=== PATIENT | male | born 1955 | race Caucasian/White ===

== ENCOUNTER → 2016-08-28 | Outpatient (CLI) | payer OTHER ==
[~2016-08-28] MED LIST: ASPEC81 PO; ATOR-24 PO; CALCTAB76 PO; CLOP1TAB5 PO; LISI-729 PO; MULT-506 PO
[2016-08-28 09:46] LABS: ALT/SGPT 35 U/L (12-78); AST/SGOT 18 U/L (15-37); BLOOD UREA NITROGEN 10 mg/dl (7-18); BUN/CREATININE RATIO 10.6 (10-20); CALCIUM 8.8 mg/dl (8.5-10.1); CARBON DIOXIDE 29 mmol/L (21-32); CHLORIDE 107 mmol/L (98-107); CREATININE 0.92 mg/dl (0.60-1.40); GLUCOSE 98 mg/dl (70-99); POTASSIUM 4.2 mmol/L (3.5-5.1); SODIUM 143 mmol/L (136-145)
[2016-08-28 09:49] LABS: ALB/GLOB RATIO 1.1 (0.9-2); ALKALINE PHOSPHATASE 80 U/L (45-117); CHOLESTEROL 135 mg/dl (0-200); CHOLESTEROL/HDL RATIO 2.6; HDL CHOLESTEROL 52 mg/dl; LDL CHOLESTEROL CALCULATED 65 mg/dl; TRIGLYCERIDES 92 mg/dl (0-150); VERY LOW DENSITY LIPOPROT CALC 18 mg/dl
[2016-08-28 09:56] LABS: ESTIMATED AVERAGE GLUCOSE 117 mg/dl; HA1C FLAG Normal (Normal)
== END | disposition home or self-care (01) ==
LOC: C.LAB1850 07:03
PROVIDERS: ATTEND Family Medicine
DX: I10 Essential (primary) hypertension (principal); E78.00 Pure hypercholesterolemia, unspecified; I67.2 Cerebral atherosclerosis; R73.09 Other abnormal glucose

== ENCOUNTER 2016-09-22 12:26 | Emergency (ER) | payer OTHER ==
[~2016-09-22] VITALS: Ht 181.6 cm; Wt 95.6 kg
[~2016-09-22 12:26] MED LIST changes: -ATOR-24 PO; -CLOP1TAB5 PO; -LISI-729 PO; -MULT-506 PO
[2016-09-22 12:29] VITALS: TEMP 36.5; Ht 181.6 cm; Wt 95.6 kg
[2016-09-22] MEDS ORDERED: MULT-506 PO (13:49)
[2016-09-22 14:12] VITALS: O2SAT 96
[2016-09-22 14:28] LABS: BASO % 0.4 %; BASO ABS # 0.02 K/uL (0-0.2); COMPLETE YES; EOS % 2.4 %; HEMATOCRIT 45.6 % (42-52); IG% 0.2 %; LYMPH % 34.5 %; LYMPH ABS # 1.89 K/uL (1.2-3.4); MEAN CELL VOLUME 83.5 fL (80-100); MEAN CORPUSCULAR HEMOGLOBIN 28.9 pg (25-34); MEAN CORPUSCULAR HGB CONC 34.6 g/dl (32-36); MEAN PLATELET VOLUME 9.5 fL (7.4-10.4); MONO % 6.8 %; NEUT % 55.7 %; PLATELET COUNT 241 K/uL (130-400); RED BLOOD COUNT 5.46 M/uL (4.7-6.1); WHITE BLOOD COUNT 5.48 K/uL (4.8-10.8)
[2016-09-22 14:41] LABS: PARTIAL THROMBOPLASTIN RATIO 1.1; PROTHROMBIN TIME (PATIENT) 10.3 SECONDS (9.0-12.0)
[2016-09-22 14:48] LABS: BLOOD UREA NITROGEN 16 mg/dl (7-18); BUN/CREATININE RATIO 17.3 (10-20); CALCIUM 9.4 mg/dl (8.5-10.1); CARBON DIOXIDE 28 mmol/L (21-32); CHLORIDE 106 mmol/L (98-107); CREATININE 0.93 mg/dl (0.60-1.40); GLUCOSE 89 mg/dl (70-99); POTASSIUM 4.2 mmol/L (3.5-5.1); SODIUM 140 mmol/L (136-145)
[2016-09-22 14:52] LABS: CKMB/CK RATIO 1.8 (0-3.0)
[2016-09-22] MEDS: SODIUM CHLORIDE 0.9% 1000ML 1,000 ML IV SCH ×2 (14:57→14:58)
[2016-09-22 15:17] LABS: URINE APPEARANCE CLOUDY (CLEAR); URINE BILIRUBIN NEG (NEG); URINE COLOR YELLOW; URINE EPITHELIAL CELL AUTO 0-5 /lpf (0-5); URINE NITRITE NEG (NEG); URINE SPECIFIC GRAVITY 1.006 (1.000-1.030); UROBILINOGEN NEG (NEG); ZZUR CULT IF INDIC CLEAN CATCH NO
[2016-09-22 15:20] LABS: MANUAL MICROSCOPIC REQUIRED? NO; REVIEW REQ? NO
--- NOTE | 2016-09-22 16:25 | DIAGNOSTIC IMAGING REPORT ---
Brain MRA HISTORY: Mental status change slurred speech TECHNIQUE: 3-D [id number] MRA of the brain was performed without contrast. COMPARISON STUDY: 06/01/2009 FINDINGS: Visualized intracranial internal carotid arteries, distal vertebral arteries, and basilar artery are widely patent. 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 There is a focal stenotic process of the proximal left posterior cerebral artery. This is unchanged in the prior exam. There are no new or interval findings. 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 Otherwise negative exam. No new or interval findings. Electronically signed by: Herman Marino M.D. 09/22/2016 4:24 PM Dictated Date/Time: 09/22/2016 4:22 PM
[2016-09-22 16:39] VITALS: BP 122/94; PULSE 73; O2SAT 98
--- NOTE | 2016-09-22 16:42 | DIAGNOSTIC IMAGING REPORT ---
Brain MRI WITHOUT CONTRAST HISTORY: slurred speech, intermittent TECHNIQUE: Multiplanar multisequence MRI of the brain was performed without the use of contrast. COMPARISON STUDY: Brain MRI 06/01/2009. FINDINGS: The midline structures are intact. The paranasal sinuses and mastoid air cells are clear. The ventricles and sulci demonstrate mild age-related involutional changes. No areas of restricted diffusion to suggest acute infarction. Focal area of encephalomalacia with surrounding T2 signal within the left inferior temporal lobe. This likely represents an old infarct. There is no mass, hematoma, or midline shift. Scattered foci of T2 hyperintensity within the periventricular and subcortical white matter have progressed. These are nonspecific but suggestive of microvascular ischemic change. The major vascular flow voids at the skull base are maintained. There is also an old small infarct within the left occipital lobe. IMPRESSION: 1. No acute infarct. 2. Progression of the multiple scattered foci of T2 hyperintensity within the subcortical and perinephric white matter. These are nonspecific but favor microvascular ischemic change. 3. Old small infarct within the left upper lobe and left occipital lobe Electronically signed by: Gilberto Vicente M.D. 09/22/2016 4:40 PM Dictated Date/Time: 09/22/2016 4:26 PM
[2016-09-22] MEDS ORDERED: CLOPIDOGREL BISULFATE 75 MG TAB PO ONE (17:00)
[2016-09-22] MEDS ORDERED: CLOP1TAB5 PO (17:01)
[2016-09-22] MEDS ORDERED: ATOR-24 PO (19:07)
--- NOTE | 2016-09-22 20:16 | EMERGENCY ROOM VISIT NOTE ---
History Report prepared by Chema: Fany Muñoz Under the Supervision of: Dr. Thony Lin M.D. 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 The patient states that this has been going on for months. During the episodes he gets some numbness in his jaw and stutters his speech. The symptoms typically go away within an hour. The patient told his PCP, Dr. Gaona, about his symptoms and had an ultrasound of his neck at the beginning of August which was unrevealing. The patient's most recent episode of his symptoms was yesterday. Due to the continuation of his episodes and concern for stroke, he went to his PCP's office again today and was referred to the ED so that imaging can be ordered more quickly than she could order it. She will schedule further testing for him later in the week. Currently, he does not have any complaints and is asymptomatic. He does state that his symptoms sometimes occur after he eats and he is suspicious that his elevated blood pressure when eating could be causing his symptoms. Pt denies LOC, headache, fevers, chills, diaphoresis, visual changes, neck pain, chest pain, breathing difficulties, nausea, vomiting, abdominal pain, back pain, melena, hematochezia, urinary symptoms, numbness, weakness, lymphadenopathy, rash, or other complaints. Source of History: patient Onset: months ago Position: other (neuro) Quality: other (stuttering) Timing: intermittent Review of Systems See HPI for pertinent positives and negatives. A total of ten systems were reviewed and were otherwise negative. Past Medical & Surgical Medical Problems: (1) Vitreous detachment Family History No pertinent family history stated. Social History Smoking Status: Never Smoker Alcohol Use: none Drug Use: none Marital Status: single Housing Status: lives alone Occupation Status: employed Current/Historical Medications Scheduled Aspirin Enteric Coated (Ecotrin Or Generic *), 81 MG PO DAILY Atorvastatin (Lipitor), 40 MG PO DAILY Calcium Carbonate-Vitamin D (Calcium 500+D), 2 TAB PO DAILY Clopidogrel Bisulfate (Plavix), 1 TAB PO DAILY Lisinopril (Prinivil), 5 MG PO QAM Multivitamin (Multivitamin), 1 TAB PO DAILY Allergies Coded Allergies: No Known Allergies (Verified , *, 09/22/16) Physical Exam Vital Signs Date Time Temp Pulse Resp B/P Pulse Ox O2 Delivery O2 Flow Rate FiO2 09/22/16 16:39 73 16 122/94 98 Room Air 09/22/16 14:54 67 20 157/87 97 Room Air 09/22/16 14:12 96 Room Air 09/22/16 12:29 36.5 79 18 145/98 98 Room Air Physical Exam GENERAL: Awake, alert, well appearing, no distress HENT: Normocephalic, atraumatic. Oropharynx unremarkable. EYES: PERRL. EOMI. Normal conjunctiva. Sclera non-icteric. NECK: Supple. No nuchal rigidity. FROM. No JVD or bruit. RESPIRATORY: CTA CARDIAC: RRR. No murmur. ABDOMEN: Soft, non distended. No tenderness to palpation. No rebound or guarding. No masses. RECTAL: Deferred. MUSCULOSKELETAL: Unremarkable. No edema. No discoloration. Gross motor strength symmetric. NEURO: Cranial nerves 2-12 grossly intact. Normal sensorium. No sensory or motor deficits noted. Gait normal. Speech normal. No pronator drift. Negative rhomberg. SKIN: No rash or jaundice noted. LYMPH: No adenopathy. Medical Decision & Procedures ER Provider Diagnostic Interpretation: Radiology results as stated below per my review and radiologist interpretation. Brain MRA HISTORY: Mental status change slurred speech TECHNIQUE: 3-D [id number] MRA of the brain was performed without contrast. COMPARISON STUDY: 06/01/2009 FINDINGS: Visualized intracranial internal carotid arteries, distal vertebral arteries, and basilar artery are widely patent. 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 There is a focal stenotic process of the proximal left posterior cerebral artery. This is unchanged in the prior exam. There are no new or interval findings. 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 Otherwise negative exam. No new or interval findings. Electronically signed by: Herman Marino M.D. 09/22/2016 4:24 PM Dictated Date/Time: 09/22/2016 4:22 PM Brain MRI WITHOUT CONTRAST HISTORY: slurred speech, intermittent TECHNIQUE: Multiplanar multisequence MRI of the brain was performed without the use of contrast. COMPARISON STUDY: Brain MRI 06/01/2009. FINDINGS: The midline structures are intact. The paranasal sinuses and mastoid air cells are clear. The ventricles and sulci demonstrate mild age-related involutional changes. No areas of restricted diffusion to suggest acute infarction. Focal area of encephalomalacia with surrounding T2 signal within the left inferior temporal lobe. This likely represents an old infarct. There is no mass, hematoma, or midline shift. Scattered foci of T2 hyperintensity within the periventricular and subcortical white matter have progressed. These are nonspecific but suggestive of microvascular ischemic change. The major vascular flow voids at the skull base are maintained. There is also an old small infarct within the left occipital lobe. IMPRESSION: 1. No acute infarct. 2. Progression of the multiple scattered foci of T2 hyperintensity within the subcortical and perinephric white matter. These are nonspecific but favor microvascular ischemic change. 3. Old small infarct within the left upper lobe and left occipital lobe Electronically signed by: Gilberto Vicente M.D. 09/22/2016 4:40 PM Dictated Date/Time: 09/22/2016 4:26 PM Laboratory Results 09/22/16 14:18 Red Blood Count 5.46, Mean Corpuscular Volume 83.5, Mean Corpuscular Hemoglobin 28.9, Mean Corpuscular Hemoglobin Concent 34.6, Mean Platelet Volume 9.5, Neutrophils (%) (Auto) 55.7, Lymphocytes (%) (Auto) 34.5, Monocytes (%) (Auto) 6.8, Eosinophils (%) (Auto) 2.4, Basophils (%) (Auto) 0.4, Neutrophils # (Auto) 3.06, Lymphocytes # (Auto) 1.89, Monocytes # (Auto) 0.37, Eosinophils # (Auto) 0.13, Basophils # (Auto) 0.02 09/22/16 14:18 Test 09/22/16 14:18 09/22/16 14:45 09/22/16 14:47 White Blood Count 5.48 K/uL (4.8-10.8) Red Blood Count 5.46 M/uL (4.7-6.1) Hemoglobin 15.8 g/dL (14.0-18.0) Hematocrit 45.6 % (42-52) Mean Corpuscular Volume 83.5 fL (80-100) Mean Corpuscular Hemoglobin 28.9 pg (25-34) Mean Corpuscular Hemoglobin Concent 34.6 g/dl (32-36) Platelet Count 241 K/uL (130-400) Mean Platelet Volume 9.5 fL (7.4-10.4) Neutrophils (%) (Auto) 55.7 % Lymphocytes (%) (Auto) 34.5 % Monocytes (%) (Auto) 6.8 % Eosinophils (%) (Auto) 2.4 % Basophils (%) (Auto) 0.4 % Neutrophils # (Auto) 3.06 K/uL (1.4-6.5) Lymphocytes # (Auto) 1.89 K/uL (1.2-3.4) Monocytes # (Auto) 0.37 K/uL (0.11-0.59) Eosinophils # (Auto) 0.13 K/uL (0-0.5) Basophils # (Auto) 0.02 K/uL (0-0.2) RDW Standard Deviation 40.2 fL (36.4-46.3) RDW Coefficient of Variation 13.3 % (11.5-14.5) Immature Granulocyte % (Auto) 0.2 % Immature Granulocyte # (Auto) 0.01 K/uL (0.00-0.02) Prothrombin Time 10.3 SECONDS (9.0-12.0) Prothromb Time International Ratio 1.0 (0.9-1.1) Activated Partial Thromboplast Time 27.8 SECONDS (21.0-31.0) Partial Thromboplastin Ratio 1.1 Anion Gap 6.0 mmol/L (3-11) Est Creatinine Clear Calc Drug Dose 98.0 ml/min Estimated GFR () 101.6 Estimated GFR (Non- 87.7 BUN/Creatinine Ratio 17.3 (10-20) Calcium Level 9.4 mg/dl (8.5-10.1) Total Creatine Kinase 193 U/L (39-308) Creatine Kinase MB 3.5 ng/ml (0.5-3.6) Creatine Kinase MB Ratio 1.8 (0-3.0) Troponin I < 0.015 ng/ml (0-0.045) Bedside Prothrombin Time INR 1.0 (0.9-1.1) Bedside Glucose 85 mg/dl (70-99) Urine Color YELLOW Urine Appearance CLOUDY (CLEAR) Urine pH 5.0 (4.5-7.5) Urine Specific [place] 1.006 (1.000-1.030) Urine Protein NEG (NEG) Urine Glucose (UA) NEG (NEG) Urine Ketones NEG (NEG) Urine Occult Blood NEG (NEG) Urine Nitrite NEG (NEG) Urine Bilirubin NEG (NEG) Urine Urobilinogen NEG (NEG) Urine Leukocyte Esterase NEG (NEG) Urine WBC (Auto) 0 /hpf (0-5) Urine RBC (Auto) 0-4 /hpf (0-4) Urine Hyaline Casts (Auto) 0 /lpf (0-5) Urine Epithelial Cells (Auto) 0-5 /lpf (0-5) Urine Bacteria (Auto) NEG (NEG) Laboratory results reviewed by me Medications Administered Medications (Trade) Dose Ordered Sig/Shashi Route Start Time Stop Time Status Last Admin Dose Admin Sodium Chloride (Nss 1000ml) 1,000 ml @ 50 mls/hr Q20H IV 09/22/16 13:56 09/22/16 17:24 DC 09/22/16 14:58 50 MLS/HR Clopidogrel Bisulfate (plAVix TAB) 75 mg NOW ONCE PO 09/22/16 17:00 09/22/16 17:01 DC 09/22/16 17:10 75 MG ECG Indication: other (neuro symptoms) Rate (beats per minute): 62 Rhythm: normal sinus Findings: no acute ischemic change, no ectopy ED Course 1356: Ordered NSS 1000 ml @ 50 mls/hr IV. 1440: The patient was evaluated in room C11. A complete history and physical exam was performed. 1647: I discussed the case with Dr. Renteria - [facility]. She recommended that the patient be put on 75 mg Plavix and stop taking aspirin after a week of crossover. 1653: I reevaluated the patient. Discussed results and discharge instructions: He verbalized understanding and agreement. The patient is ready for discharge. 1700: Ordered Plavix Tab 75 mg PO. Medical Decision Triage Nursing notes reviewed. The patient's presentation and history were concerning for slurred speech and facial numbness that occurs intermittently. Etiologies such as TIA, CVA,metabolic, infection, hypo/hyperglycemia, electrolyte abnormalities, cardiac sources, intracerebral event, toxicologic, neurologic, as well as others were entertained. The patient was evaluated. Clinically was doing well. He had no slurred speech at this time. He had no facial numbness. Physical examination was nonfocal. The patient unremarkable CBC and chemistry panel. ECG was negative. UA was negative. The patient underwent MR A and MRI imaging. He had some old stenosis noted on MRI but nothing acute. MRI shows microvascular ischemic change as well as an old frontal and posterior infarct. Since the patient has had some neurologic symptoms and the findings on MRI neurology was consulted. I discussed the case with Dr. Grant. Since the findings are old it was recommended that the patient start Plavix. He will continue this with aspirin for 1 week and then stop the aspirin. The patient was educated. He was given the first dose of Plavix here. He notes R to having a carotid ultrasound done. He will follow-up with his primary physician. Dr. Grant will contact his primary physician and will be available for consultation as an outpatient. The patient worsens in any way he will be back to the Emergency Room for reevaluation. No evidence of acute/subacute CVA. The patient does not want to stay in the hospital. He was a continue his workup as an outpatient. By the evaluation outlined above other emergent etiologies such as those listed in the differential, as well as others, were deemed relatively unlikely. The patient was informed about the findings as listed above. All questions were answered and he was pleased with the treatment. Return instructions were outlined and the patient was discharged in stable condition. The patient was referred to his PCP for follow-up CHARLES for a recheck of the current condition. The chart was completed utilizing [employer] Speech voice recognition software. Grammatical errors, random word insertions, pronoun errors, and incomplete sentences are an occasional consequence of this system due to software limitations, ambient noise, and hardware issues. Any formal questions or concerns about the content, text, or information contained within the body of this dictation should be directly addressed to the physician for clarification. Consults Time Called: [phone] Consulting Physician: Dr. Renteria - [facility] Returned Call: [phone] I discussed the case with her. She recommended that the patient be put on 75 mg Plavix and stop taking aspirin after a week of crossover. Impression Primary Impression: Slurred speech Additional Impression: History of CVA (cerebrovascular accident) Scribe Attestation The scribe's documentation has been prepared under my direction and personally reviewed by me in its entirety. I confirm that the note above accurately reflects all work, treatment, procedures, and medical decision making performed by me. Departure Information Dispostion Home / Self-Care Prescriptions Clopidogrel Bisulfate (PLAVIX) 75 Mg Tab 1 TAB PO DAILY for 30 Days, #30 TAB Prov: Thony Lin MD 09/22/16 Referrals Simran Flores DO (PCP) Patient Instructions My [facility] Additional Instructions Start Plavix 75 mg daily. Continue the aspirin for 1 week and then stop the aspirin. Follow-up with your PCP's office office on Sunday. Continue other medications. Return to the ER for headache, passing out, difficulty breathing, fevers, numbness, tingling, worsening of your condition, speech issues, or as needed. Problem Qualifiers
[2016-09-22] MEDS ORDERED: LISI-729 PO (21:44)
== END 2016-09-22 17:15 | disposition home or self-care (01) ==
LOC: C.EDB 12:27 → C.EDC 17:15
DX: R47.81 Slurred speech (principal); Z86.73 Personal history of transient ischemic attack (TIA), and cerebral infarction without residual deficits; Z79.82 Long term (current) use of aspirin